=== PATIENT | female | born 1980 | race Caucasian/White ===

== ENCOUNTER 2018-04-06 13:25 | Emergency (ER) | END 2018-04-06 22:46 | disposition home or self-care (01) ==

== ENCOUNTER 2018-04-18 09:12 | Emergency (ER) | END 2018-04-18 12:28 | disposition home or self-care (01) ==

== ENCOUNTER 2018-05-11 09:37 | Emergency (ER) | END 2018-05-11 13:41 | disposition home or self-care (01) ==

== ENCOUNTER 2018-07-09 10:15 | Emergency (ER) | payer MEDICAID ==
[~2018-07-09] VITALS: Ht 160 cm; Wt 72.0 kg
[~2018-07-09 10:15] MED LIST: ACET500C5 PO; CEPH-443 PO
[2018-07-09 10:20] VITALS: Ht 160 cm; Wt 72.0 kg
[2018-07-09] MEDS ORDERED: CEPH-443 PO (13:40)
[2018-07-09 13:46] VITALS: BP 124/76; PULSE 75; RESP 19
--- NOTE | 2018-07-09 16:06 | ERD ---
ER Documentation Chief Complaint Chief Complaint pt bib self with c/o vag bleeding, + preg test at home, HPI 37-year-old female patient with no significant past medical history is a presents the ED complaining of vaginal bleeding that started earlier today. Reports that she did go to the [facility], few days ago and is unsure if she is . Reports that she had a positive test at home, negative test in the clinic. Reports that she has had to change about 4-5 pads per day. Denies any abdominal pain, nausea, vomiting, diarrhea, constipation, dysuria, urgency, frequency. Patient did have a miscarriage in March 2018. ROS All systems reviewed and are negative except as per history of present illness. Medications Home Meds Active Scripts Cephalexin* (Keflex*) 500 Mg Capsule, 500 MG PO QID for 7 Days, CAP Prov:BURT STRATTON-Michelle 07/09/18 Acetaminophen* (Tylophen*) 500 Mg Capsule, 1 CAP PO Q6H PRN for PAIN AND OR ELEVATED TEMP, #20 CAP Prov:BURT STRATTON PA-C 04/18/18 Cephalexin* (Keflex*) 500 Mg Capsule, 500 MG PO QID for 7 Days, CAP Prov:BURT STRATTON-C 04/18/18 Allergies Allergies: Coded Allergies: No Known Allergy (Unverified , 07/09/18) PMhx/Soc Medical and Surgical Hx: pt denies Medical Hx, pt denies Surgical Hx Hx Alcohol Use: No Hx Substance Use: No Hx Tobacco Use: No Smoking Status: Never smoker FmHx Family History: No diabetes, No coronary disease Physical Exam Vitals Vital Signs Date Temp Pulse Resp B/P (MAP) Pulse Ox O2 O2 Flow FiO2 Time Delivery Rate 07/09/18 98.9 75 19 124/76 100 Room Air 13:46 (92) 07/09/18 99.2 98 18 133/85 97 10:20 (101) Physical Exam Const: Olj-[id number]-aiiblpjrn, well-nourished. In no acute distress. Head: Atraumatic, normocephalic Eyes: Normal Conjunctiva without injection. No purulent discharge. ENT: Normal external ear, nose. Moist oropharynx without tonsillar exudates. Non-erythematous pharynx. Uvula midline. No drooling. No trismus. Neck: No cervical midline tenderness. Full range of motion. No meningismus. No cervical lymphadenopathy. No JVD. Resp: Clear to auscultation bilaterally. No wheezing, rhonchi, rales, or crackles. No accessory muscle use. No retractions. Cardio: Regular rate and rhythm. No murmurs, rubs or gallops. Abd: Soft, nontender, non distended. Normal bowel sounds. No palpable masses. No rebound tenderness. No guarding. Negative McBurney's point. Negative psoas sign. Negative obturator sign. Skin: No petechiae or rashes Back: No midline tenderness. No CVA tenderness. Ext: No cyanosis, or edema. Neur: Awake and alert. Normal gait. Normal coordination. Psych: Normal Mood and Affect Result Diagram: 07/09/18 1041 Results 24 hrs Laboratory Tests Test 07/09/18 10:41 07/09/18 10:59 White Blood Count 10.3 10^3/ul Red Blood Count 4.76 10^6/ul Hemoglobin 14.6 g/dl Hematocrit 43.7 % Mean Corpuscular Volume 91.8 fl Mean Corpuscular Hemoglobin 30.7 pg Mean Corpuscular Hemoglobin Concent 33.4 g/dl Red Cell Distribution Width 12.8 % Platelet Count 304 10^3/UL Mean Platelet Volume 9.7 fl Immature Granulocytes % 0.400 % Neutrophils % 61.5 % Lymphocytes % 29.5 % Monocytes % 7.5 % Eosinophils % 0.8 % Basophils % 0.3 % Nucleated Red Blood Cells % 0.0 /100WBC Immature Granulocytes # 0.040 10^3/ul Neutrophils # 6.3 10^3/ul Lymphocytes # 3.0 10^3/ul Monocytes # 0.8 10^3/ul Eosinophils # 0.1 10^3/ul Basophils # 0.0 10^3/ul Nucleated Red Blood Cells # 0.0 10^3/ul Urine Color YELLOW Urine Clarity SLIGHTLY CLOUDY Urine pH 5.0 Urine Specific [place] 1.030 Urine Ketones NEGATIVE mg/dL Urine Nitrite NEGATIVE mg/dL Urine Bilirubin NEGATIVE mg/dL Urine Urobilinogen NEGATIVE mg/dL Urine Leukocyte Esterase 1+ Anahy/ul Urine Microscopic RBC 1 /HPF Urine Microscopic WBC 8 /HPF Urine Squamous Epithelial Cells FEW /HPF Urine Mucus FEW /HPF Urine Hemoglobin 1+ mg/dL Urine Glucose NEGATIVE mg/dL Urine Total Protein NEGATIVE mg/dl Beta HCG, Quantitative 121.9 mIU/ml POC Beta HCG, Qualitative POSITIVE Procedures/MDM 37-year-old female patient with no significant past medical history is a presents the ED complaining of vaginal bleeding and a possible . Patient is afebrile and nontoxic-appearing. Patient's blood pressure is 133/85. Blood Pressure Assessment: Patient's blood pressure was elevated (>120/80) but appears stable without evidence of hypertension emergency or urgency. The patient was counseled about the risks of hypertension and urged to pursue outpatient monitoring and therapy within a week with their primary care physician. An ultrasound, beta-hCG, CBC, type and RH, UA was ordered to evaluate patient. CBC: No evidence of severe infection or anemia Urine: No elevation in nitrites, 1+ leukocyte esterase, hematuria. Rh: AB Positive No indication for Rhogam at this time. beta Hc.9 PROCEDURE: US Pelvis. CLINICAL INDICATION: vaginal bleeding TECHNIQUE: Multiple sonographic images of the pelvis were obtained utilizing a transabdominal and endovaginal technique. The images were reviewed on a PACS workstation. COMPARISON: 05/11/2018 FINDINGS: The uterus is normal in size. There is a 1.6 cm fibroid within the uterus. The uterus measures 7.8 x 4.1 x 5.2 cm in size. The endometrial stripe is heterogeneous in appearance and has the thickness of 20 mm. No intrauterine gestation is noted. The ovaries are normal in size and echogenicity. Normal Doppler flow is iden tified in both ovaries. The right ovary measures 3.3 x 1.8 x 2.4 cm. The left ovary measures 4.4 x 2.4 x 2.3 cm. There is a 1.9 cm hemorrhagic cyst in the left ovary. There are smaller simple cysts in the left ovary. There is a moderate amount of free fluid in the pelvis. RPTAT: AA IMPRESSION: No intrauterine gestation visualized. Moderate amount of free fluid in the pelvis. Small fibroid within the uterus. Small hemorrhagic cyst and simple cysts in the left ovary. Differential diagnosis includes early , missed or ectopic . Follow-up ultrasound and HCG levels is recommended. Patient has a fibroid as well as a hemorrhagic cyst of the left ovary. Patient has questionable early versus missed versus ectopic therefore repeat ultrasound and hCG levels are recommended. Patient's bleeding symptoms have stabilized while in the department. Low suspicion for symptomatic anemia, ectopic , sepsis, PID, appendicitis, ovarian torsion, tubo- ovarian abscess, surgical abdomen, or other emergent conditions. Patient was educated that there is a risk for threatened . Patient was discussed with Dr. Short who agreed with the management discharge plan. Patient to follow up with [facility] in 2 days for further evaluation and treatment. Patient is to return sooner to the ED for any worsening symptoms. Patient's questions were answered. Patient understood and agreed with discharge plan. Departure Diagnosis: Primary Impression: Vaginal bleeding in patient at less than 20 weeks ges... Condition: Stable Patient Instructions: Urinary Tract Infections in Women, Bleeding During Early Referrals: [facility] YOU HAVE RECEIVED A MEDICAL SCREENING EXAM AND THE RESULTS INDICATE THAT YOU DO NOT HAVE A CONDITION THAT REQUIRES URGENT TREATMENT IN THE EMERGENCY DEPARTMENT. FURTHER EVALUATION AND TREATMENT OF YOUR CONDITION CAN WAIT UNTIL YOU ARE SEEN IN YOUR DOCTORS OFFICE WITHIN THE NEXT 1-2 DAYS. IT IS YOUR RESPONSIBILITY TO MAKE AN APPOINTMENT FOR FOLOW-UP CARE. IF YOU HAVE A PRIMARY DOCTOR --you should call your primary doctor and schedule an appointment IF YOU DO NOT HAVE A PRIMARY DOCTOR YOU CAN CALL OUR PHYSICIAN REFERRAL HOTLINE AT IF YOU CAN NOT AFFORD TO SEE A PHYSICIAN YOU CAN CHOSE FROM THE FOLLOWING [facility] [address] [facility]. [facility] [address] [facility] [address] [facility]. [facility] [address] [facility]. [facility] [address] [facility]. [facility]. [address] [facility]. [facility] YOU HAVE RECEIVED A MEDICAL SCREENING EXAM AND THE RESULTS INDICATE THAT YOU DO NOT HAVE A CONDITION THAT REQUIRES URGENT TREATMENT IN THE EMERGENCY DEPARTMENT. FURTHER EVALUATION AND TREATMENT OF YOUR CONDITION CAN WAIT UNTIL YOU ARE SEEN IN YOUR DOCTORS OFFICE WITHIN THE NEXT 1-2 DAYS. IT IS YOUR RESPONSIBILITY TO MAKE AN APPOINTMENT FOR FOLOW-UP CARE. IF YOU HAVE A PRIMARY DOCTOR --you should call your primary doctor and schedule and appointment IF YOU DO NOT HAVE A PRIMARY DOCTOR YOU CAN CALL OUR PHYSICIAN REFERRAL HOTLINE AT . IF YOU CAN NOT AFFORD TO SEE A PHYSICIAN YOU CAN CHOSE FROM THE FOLLOWING [facility] INSTITUTIONS: [facility] [address] [place] [address] [facility] [address] [place], [place] [id number] [place] [address] [address] [place] [address] [facility] URGENT CARE/SPECIALTIES Additional Instructions: Call your [facility] TOMORROW for an appointment during the next 2-3 days for repeat beta hcg and ultrasound. See the doctor sooner or return here if your condition worsens before your appointment time. BURT STRATTON PA-C Jul 09, 2018 16:06
== END 2018-07-09 13:47 | disposition home or self-care (01) ==
LOC: FTE 10:15
DX: O20.9 Hemorrhage in early pregnancy, unspecified (principal); Z3A.00 Weeks of gestation of pregnancy not specified
CPT/HCPCS: 36415; 76801; 76817; 81001; 81025; 84702; 85025; 86900; 86901

== ENCOUNTER 2018-08-20 08:53 | Emergency (ER) | payer MEDICAID ==
[~2018-08-20] VITALS: Wt 78.0 kg
[2018-08-20 08:56] VITALS: BP 140/78; PULSE 81; RESP 18
[2018-08-20] MEDS ORDERED: METR70GE15 VAG (11:09)
[2018-08-20] MEDS ORDERED: NITR-58 PO (11:10)
[2018-08-20] MEDS ORDERED: PHEN-537 PO (11:10)
--- NOTE | 2018-08-20 12:35 | ERD ---
ER Documentation Chief Complaint Chief Complaint DYSURIA X 2 WEEKS HPI 37-year-old female patient with no significant past medical history presents to the ED stating that she has had some vaginal spotting in the last 2 weeks as well as dysuria and dyspareunia. Patient reports that she is unsure when her last menstruation was however she has had a history of 2 miscarriages. Denies being currently. Denies any fever, chills, abdominal pain, chest pain, shortness of breath, urgency, frequency, hematuria. Denies any vaginal discharge and any concerns about STDs. Reports that she has one sexual partner. ROS All systems reviewed and are negative except as per history of present illness. Medications Home Meds Active Scripts Phenazopyridine Hcl* (Pyridium*) 100 Mg Tab, 100 MG PO TID PRN for URINARY PAIN, #8 TAB Prov:BURT STRATTONC 08/20/18 Nitrofurantoin Monohyd Macrocr* (Macrobid*) 100 Mg Capsr, 100 MG PO BID for 7 Days, CAP Prov:BURT STRATTON-C 08/20/18 Metronidazole* (Metrogel* Vaginal) 0.75% -70 Gram Gel.w.appl, 1 APPFUL VAG BID for 5 Days, #1 TUB Prov:BURT STRATTONC 08/20/18 Cephalexin* (Keflex*) 500 Mg Capsule, 500 MG PO QID for 7 Days, CAP Prov:BURT STRATTON-C 07/09/18 Acetaminophen* (Tylophen*) 500 Mg Capsule, 1 CAP PO Q6H PRN for PAIN AND OR ELEVATED TEMP, #20 CAP Prov:BURT STRATTON-C 04/18/18 Cephalexin* (Keflex*) 500 Mg Capsule, 500 MG PO QID for 7 Days, CAP Prov:BURT STRATTON-C 04/18/18 Allergies Allergies: Coded Allergies: No Known Allergy (Unverified , 07/09/18) PMhx/Soc Medical and Surgical Hx: pt denies Medical Hx, pt denies Surgical Hx Hx Alcohol Use: No Hx Substance Use: No Hx Tobacco Use: No FmHx Family History: No diabetes, No coronary disease Physical Exam Vitals Vital Signs Date Temp Pulse Resp B/P (MAP) Pulse Ox O2 O2 Flow FiO2 Time Delivery Rate 1/31/19 98.0 81 18 140/78 99 08:56 (98) Physical Exam Const: Pcj-rsw-czdzetqvg, well-nourished. In no acute distress. Head: Atraumatic, normocephalic Eyes: Normal Conjunctiva without injection. No purulent discharge. ENT: Normal external ear, nose. Moist oropharynx without tonsillar exudates. Non-erythematous pharynx. Uvula midline. No drooling. No trismus. Neck: No cervical midline tenderness. Full range of motion. No meningismus. No cervical lymphadenopathy. No JVD. Resp: Clear to auscultation bilaterally. No wheezing, rhonchi, rales, or crackles. No accessory muscle use. No retractions. Cardio: Regular rate and rhythm. No murmurs, rubs or gallops. Abd: Soft, nontender, non distended. Normal bowel sounds. No palpable masses. No rebound tenderness. No guarding. Negative McBurney's point. Negative psoas sign. Negative obturator sign. : See exam in MDM. Skin: No petechiae or rashes Back: No midline tenderness. No CVA tenderness. Ext: No cyanosis, or edema. Neur: Awake and alert. Normal gait. Normal coordination. Psych: Normal Mood and Affect Results 24 hrs Laboratory Tests Test 08/20/18 10:05 08/20/18 10:22 Urine Color YELLOW Urine Clarity CLEAR Urine pH 6.0 Urine Specific [place] 1.027 Urine Ketones TRACE mg/dL Urine Nitrite NEGATIVE mg/dL Urine Bilirubin NEGATIVE mg/dL Urine Urobilinogen NEGATIVE mg/dL Urine Leukocyte Esterase NEGATIVE Anahy/ul Urine Hemoglobin NEGATIVE mg/dL Urine Glucose NEGATIVE mg/dL Urine Total Protein NEGATIVE mg/dl POC Beta HCG, Qualitative NEGATIVE Procedures/MDM 37-year-old female patient with a past medical history of 2 miscarriages presents to ED complaining of dysuria, dyspareunia, vaginal pain. Patient is afebrile and nontoxic-appearing. Urine negative. Urine does not show any leukocyte esterase, hematuria, nitrite. Pelvic Exam: Fisher Trap present Abdomen: Nontender External Genitalia: Normal Skin Speculum: Normal vaginal mucosa, frothy white cervical discharge Bimanual: No adnexal masses or tenderness, No CMT No fluctuance or tenderness palpation of the Bartholin area below suspicion for Bartholin abscesses. Differentials include vaginitis due to the vaginal discharge that is frothy and white. Patient will be treated on outpatient basis for bacterial vaginosis. Since patient also has dysuria, patient will be treated for her symptoms with Macrobid. Patient will be given a prescription for Pyridium. Low suspicion for ectopic , ovarian torsion, gastritis, GERD, peptic ulcer disease, cholecystitis, choledocholithiasis, cholangitis, pancreatitis, appendicitis, bowel obstruction, ileus, volvulus, nephrolithiasis, pyelonephritis, hepatitis, perforated viscus, diverticulitis, strangulated/incarcerated hernia, DKA, acute abdomen, mesenteric ischemia or other emergent conditions. 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 Instructed patient to return to the ED sooner for any worsening symptoms. Patient's questions were answered. Patient understood and agreed with discharge plan. Patient discharged stable. Diagnosis: Discharge medications: Follow up with primary care physician in 1-2 days. Instructed patient to return to the ED sooner for any worsening symptoms. Patient's questions were answered. Patient is hemodynamically stable. Patient understood and agreed with discharge plan. Patient discharged stable. Disclaimer: Inadvertent spelling and grammatical errors are likely due to EHR/dictation software use and do not reflect on the overall quality of patient care. Also, please note that the electronic time recorded on this note does not necessarily reflect the actual time of the patient encounter. Departure Diagnosis: Primary Impression: Vaginitis Chronicity: acute Qualified Codes: N76.0 - Acute vaginitis Additional Impression: Dysuria Patient Instructions: Dysuria, Vaginal Infection: Bacterial Vaginosis Referrals: [facility] YOU HAVE RECEIVED A MEDICAL SCREENING EXAM AND THE RESULTS INDICATE THAT YOU DO NOT HAVE A CONDITION THAT REQUIRES URGENT TREATMENT IN THE EMERGENCY DEPARTMENT. FURTHER EVALUATION AND TREATMENT OF YOUR CONDITION CAN WAIT UNTIL YOU ARE SEEN IN YOUR DOCTORS OFFICE WITHIN THE NEXT 1-2 DAYS. IT IS YOUR RESPONSIBILITY TO MAKE AN APPOINTMENT FOR FOLOW-UP CARE. IF YOU HAVE A PRIMARY DOCTOR --you should call your primary doctor and schedule an appointment IF YOU DO NOT HAVE A PRIMARY DOCTOR YOU CAN CALL OUR PHYSICIAN REFERRAL HOTLINE AT IF YOU CAN NOT AFFORD TO SEE A PHYSICIAN YOU CAN CHOSE FROM THE FOLLOWING [facility] [address] [facility] [address] [facility] [address] [facility] [address] [facility]. [facility] [address] [facility]. [facility]. [address] [facility]. [facility] YOU HAVE RECEIVED A MEDICAL SCREENING EXAM AND THE RESULTS INDICATE THAT YOU DO NOT HAVE A CONDITION THAT REQUIRES URGENT TREATMENT IN THE EMERGENCY DEPARTMENT. FURTHER EVALUATION AND TREATMENT OF YOUR CONDITION CAN WAIT UNTIL YOU ARE SEEN IN YOUR DOCTORS OFFICE WITHIN THE NEXT 1-2 DAYS. IT IS YOUR RESPONSIBILITY TO MAKE AN APPOINTMENT FOR FOLOW-UP CARE. IF YOU HAVE A PRIMARY DOCTOR --you should call your primary doctor and schedule and appointment IF YOU DO NOT HAVE A PRIMARY DOCTOR YOU CAN CALL OUR PHYSICIAN REFERRAL HOTLINE AT . IF YOU CAN NOT AFFORD TO SEE A PHYSICIAN YOU CAN CHOSE FROM THE FOLLOWING [facility] INSTITUTIONS: [facility] [address] [place] [address] [facility] [address] [place] [address] [facility] [address] [place] [address] [facility] URGENT CARE/SPECIALTIES Additional Instructions: Call your primary care doctor TOMORROW for an appointment during the next 2-3 days.See the doctor sooner or return here if your condition worsens before your appointment time. BURT STRATTON PA-C Aug 20, 2018 12:35
== END 2018-08-20 11:20 | disposition home or self-care (01) ==
LOC: FTE 08:53
DX: N76.0 Acute vaginitis (principal)
CPT/HCPCS: 81003; 81025; 99284